=== PATIENT | male | born 1945 | race Caucasian/White ===

== ENCOUNTER 2016-09-15 07:47 | Outpatient (CLI) | payer MEDICARE, OTHER ==
[2016-09-15 14:12] LABS: CHOL/HDL RATIO 4.7 (<5.0); CHOLESTEROL 165 mg/dL; HDL CHOLESTEROL 35 mg/dL; LDL/HDL RATIO 2.4 (<3.6); TRIGLYCERIDES 229 mg/dL; VLDL CHOLESTEROL 46 mg/dL
== END 2016-09-15 07:48 | disposition home or self-care (01) ==
LOC: LAB.WCP 07:47
PROVIDERS: ATTEND Family Medicine
DX: C61 Malignant neoplasm of prostate (principal)
CPT/HCPCS: 36415; 80061; 84153

== ENCOUNTER 2017-03-26 11:13 | Outpatient (CLI) | payer MEDICARE, OTHER | END 2017-03-26 11:14 | LOC: LAB.WCP 11:13 | PROVIDERS: ATTEND Family Medicine | DX: C61 Malignant neoplasm of prostate (principal) | CPT/HCPCS: 36415; 84153 ==

== ENCOUNTER 2018-09-20 07:34 | Outpatient (CLI) | payer MEDICARE, OTHER ==
[2018-09-20 12:21] LABS: ALBUMIN 4.3 g/dL (3.2-5.5); ALBUMIN/GLOBULIN RATIO 1.4 (1.0-2.2); ALKALINE PHOSPHATASE 70 IU/L (42-121); ALT ALANINE AMINOTRANSFERASE 23 IU/L (10-60); AST ASPARTATE AMINOTRANSFERASE 27 IU/L (10-42); BILIRUBIN,TOTAL 0.8 mg/dL (0.2-1.0); BUN - BLOOD UREA NITROGEN 25 mg/dL (6-20); CALCIUM 8.7 mg/dL (8.5-10.3); CARBON DIOXIDE - CO2 22 mmol/L (21-32); CHLORIDE 101 mmol/L (101-111); CHOL/HDL RATIO 4.6 (<5.0); CHOLESTEROL 171 mg/dL; GFR - MDRD 73 (>89); GLUCOSE 96 mg/dL (70-100); HDL CHOLESTEROL 37 mg/dL; LDL CHOLESTEROL,CALCULATED 110 mg/dL; SODIUM 134 mmol/L (135-145); TOTAL PROTEIN 7.4 g/dL (6.7-8.2); VLDL CHOLESTEROL 24 mg/dL
[2018-09-20 12:25] LABS: BASOPHILS # (AUTO) 0.1 10^3/uL (0.0-0.1); BASOPHILS % (AUTO) 1.1 %; EOSINOPHILS # (AUTO) 0.3 10^3/uL (0.0-0.7); HGB - HEMOGLOBIN 14.4 g/dL (14.0-18.0); LYMPHOCYTES # (AUTO) 1.4 10^3/uL (1.5-3.5); LYMPHOCYTES % (AUTO) 24.7 %; MEAN CORPUSCULAR HEMOGLOBIN 29.2 pg (27.0-31.0); MEAN CORPUSCULAR HGB CONC 32.7 g/dL (32.0-36.0); MEAN CORPUSCULAR VOLUME 89.2 fL (80.0-94.0); MEAN PLATELET VOLUME 9.6 fL (7.4-11.4); MONOCYTES # (AUTO) 0.5 10^3/uL (0.0-1.0); MONOCYTES % (AUTO) 9.2 %; NEUTROPHILS # (AUTO) 3.3 10^3/uL (1.5-6.6); NEUTROPHILS % (AUTO) 58.6 %; PLT - PLATELET COUNT 251 10^3/uL (130-450); RED BLOOD COUNT 4.93 10^6/uL (4.70-6.10); WHITE BLOOD COUNT 5.7 x10^3/uL (4.8-10.8)
== END 2018-09-20 07:35 | disposition home or self-care (01) ==
LOC: LAB.WCP 07:34
PROVIDERS: ATTEND Family Medicine
DX: I10 Essential (primary) hypertension (principal); C61 Malignant neoplasm of prostate; E78.5 Hyperlipidemia, unspecified; N50.9 Disorder of male genital organs, unspecified; N52.9 Male erectile dysfunction, unspecified
CPT/HCPCS: 36415; 80053; 80061; 85025; G0103; 83721; 84153